=== PATIENT | female | born 1980 | race Caucasian/White ===

== ENCOUNTER 2017-06-17 19:10 | Emergency (ER) | payer SELFPAY ==
[~2017-06-17] VITALS: Ht 152.4 cm; Wt 90.7 kg
[2017-06-17] MEDS ORDERED: TDAP DIPH,PERTUSS,TET VAC/PF 0.5 ML DISP.SYRIN IM ONE ×2 (20:45→20:57)
[2017-06-17] MEDS ORDERED: NEOMY/BACITRA/POLYMYXIN B OINT UD PACKET TP ONE ×2 (20:45→20:57)
[2017-06-17 20:48] VITALS: BP 140/78
== END 2017-06-17 20:48 | disposition home or self-care (01) ==
LOC: ER 19:12
DX: S61.452A Open bite of left hand, initial encounter (principal); W54.0XXA Bitten by dog, initial encounter; Y92.89 Other specified places as the place of occurrence of the external cause; Y93.89 Activity, other specified; Y99.8 Other external cause status
CPT/HCPCS: 90715; A4663